=== PATIENT | female | born 1965 | race African-American/Black ===

== ENCOUNTER 2017-12-11 00:02 | Emergency (ER) | payer OTHER ==
[~2017-12-11] VITALS: Ht 152.4 cm; Wt 67.1 kg
--- NOTE | 2017-12-11 01:26 | PHYS DOC ---
Past History Past Medical History: Asthma, High Cholesterol, Other Past Surgical History: Hysterectomy, Other Alcohol Use: None Drug Use: None Adult General Chief Complaint Chief Complaint: MULTIPLE COMPLAINTS HPI HPI 52-year-old female presents with cough, congestion, sore throat for the last 1 week. All the patient's symptoms started as general congestion and a nonproductive cough. She has since developed a sore throat and laryngitis. She feels like she has had hot and cold sweats but has not measured a fever. She has no known sick contacts. She just came here from [place]. She has been trying DayQuil and NyQuil with little relief. Review of Systems Review of Systems Constitutional: Denies fever or chills [] Eyes: Denies change in visual acuity, redness, or eye pain [] HENT: Nasal congestion, sore throat [] Respiratory: Cough. No shortness of breath [] Cardiovascular: No additional information not addressed in HPI [] GI: Denies abdominal pain, nausea, vomiting, bloody stools or diarrhea [] : Denies dysuria or hematuria [] Musculoskeletal: Denies back pain or joint pain [] Integument: Denies rash or skin lesions [] Neurologic: Denies headache, focal weakness or sensory changes [] Endocrine: Denies polyuria or polydipsia [] All other systems were reviewed and found to be within normal limits, except as documented in this note. Physical Exam Physical Exam Constitutional: Well developed, well nourished, no acute distress, non-toxic appearance. [] HENT: Normocephalic, atraumatic, bilateral external ears normal, oropharynx erythematous, no oral exudates, nose normal. Left ear back tender pulp drier to palpation. Bilateral tympanic membranes within normal limits.[] Eyes: PERRLA, EOMI, conjunctiva normal, no discharge. [] Neck: Normal range of motion. Mild anterior lymphadenopathy bilateral [] Cardiovascular:Heart rate regular rhythm, no murmur [] Lungs & Thorax: Bilateral breath sounds clear to auscultation [] Abdomen: Bowel sounds normal, soft, no tenderness, no masses, no pulsatile masses. [] Skin: Warm, dry, no erythema, no rash. [] Back: No tenderness, no CVA tenderness. [] Extremities: No tenderness, no cyanosis, no clubbing, ROM intact, no edema. [] Neurologic: Alert and oriented X 3, normal motor function, normal sensory function, no focal deficits noted. [] Psychologic: Affect normal, judgement normal, mood normal. [] Current Patient Data Vital Signs Vital Signs Date Time Temp Pulse Resp B/P (MAP) Pulse Ox O2 Delivery O2 Flow Rate FiO2 12/11/17 00:57 99.1 80 20 98 Room Air EKG EKG [] Radiology/Procedures Radiology/Procedures [] Course & Med Decision Making Course & Med Decision Making Pertinent Labs and Imaging studies reviewed. (See chart for details) The patient's rapid strep is positive. I will give her 500 mg of penicillin V in the ED as well as a prescription for penicillin V 500 twice a day for 10 days. [] Dragon Disclaimer Dragon Disclaimer This electronic medical record was generated, in whole or in part, using a voice recognition dictation system. Departure Departure: Referrals: NON,STAFF (PCP) Scripts Benzonatate (TESSALON PERLE) 100 Mg Capsule 1 CAP PO TID PRN for COUGH, #30 CAP Prov: JAMAL ESPINAL DO 12/11/17 Penicillin V Potassium (PENICILLIN V POTASSIUM) 500 Mg Tablet 1 TAB PO BID, #20 TAB Prov: JAMAL ESPINAL DO 12/11/17 JAMAL ESPINAL DO Dec 11, 2017 01:26
[2017-12-11 01:55] VITALS: BP 124/81
[2017-12-11] MEDS ORDERED: PENI500T PO (02:11)
[2017-12-11] MEDS ORDERED: BENZ100C PO (02:19)
[2017-12-11] MEDS ORDERED: PENICILLIN V K 250 MG TABLET. PO ONE (03:00)
== END 2017-12-11 02:43 | disposition home or self-care (01) ==
LOC: ER 00:02
DX: J02.0 Streptococcal pharyngitis (principal); J45.909 Unspecified asthma, uncomplicated; E78.00 Pure hypercholesterolemia, unspecified
CPT/HCPCS: 87880; 99283